=== PATIENT | female | born 1970 ===

== ENCOUNTER 2017-11-27 17:15 | Emergency (ER) | payer OTHER ==
[~2017-11-27] VITALS: Ht 152.4 cm; Wt 74.4 kg
[~2017-11-27 17:15] MED LIST: CIPRO500 MG PO; FAMOTIDINE20 MG PO; FLAGYL500MG PO; INTESTINEX1 CA1 PO; PEPCID40 MG PO; PROTONIX40 MG PO; SUCRALFATE1 GM/10 ML PO; ZOFRAN8 MG PO
== END 2017-11-28 00:18 | disposition home or self-care (01) ==
LOC: ER 17:15
DX: K29.70 Gastritis, unspecified, without bleeding (principal)